=== PATIENT | male | born 1955 | race Caucasian/White ===

== ENCOUNTER 2019-01-27 09:44 | Outpatient (RCR) | payer OTHER, SELFPAY | END 2019-02-15 00:01 | LOC: MPT 09:44 | PROVIDERS: Family Provider Emergency Medicine Emergency Medical Services; Visit Provider Emergency Medicine Emergency Medical Services | DX: R53.1 Weakness (principal) | CPT/HCPCS: 97110 ×4; 97161 ==

== ENCOUNTER 2019-02-16 13:43 | Outpatient (RCR) | payer OTHER, SELFPAY | END 2019-03-18 23:59 | disposition home or self-care (01) | LOC: MPT 13:43 | PROVIDERS: Family Provider Emergency Medicine Emergency Medical Services; Visit Provider Emergency Medicine Emergency Medical Services | DX: M79.642 Pain in left hand (principal); R53.1 Weakness | CPT/HCPCS: 97110; 97140 ==